=== PATIENT | male | born 1950 | race Caucasian/White ===

== ENCOUNTER → 2020-02-01 | Outpatient (CLI) | payer OTHER ==
--- NOTE | 2020-02-01 13:31 | RAD ---
CHEST PA LATERAL INDICATION: AFIB, PRE OP / Spl. Instructions: / History: . COMPARISON STUDY: 01/24/2020. FINDINGS: Lungs: Normal lung volume. No pulmonary mass or consolidation. The tracheobronchial tree and hilar structures are normal. Pleura: No pleural effusion or pneumothorax. Heart and Mediastinum: The cardiomediastinal silhouette is normal. The great vessels of the thorax are normal. Bones and Soft Tissues: Unchanged thoracolumbar junction compression deformity. IMPRESSION: No acute cardiopulmonary process. Electronically signed by: Quentin Olguin MD (02/01/2020 1:28 PM) [id number]
== END ==
LOC: RAD 10:42
PROVIDERS: ATTEND Family Medicine
DX: I48.20 Chronic atrial fibrillation, unspecified (principal); M43.8X5 Other specified deforming dorsopathies, thoracolumbar region
CPT/HCPCS: 71046

== ENCOUNTER → 2020-04-21 | Outpatient (CLI) | payer MEDICARE ==
--- NOTE | 2020-04-21 15:20 | RAD ---
EXAM: Chest and right ribs, 4 views. HISTORY: Pain. Fall. COMPARISON: 02/01/2020 FINDINGS: A frontal view of the chest and 3 views of the right ribs are obtained. There is a small ri ght pleural effusion and suspected right lower lobe atelectasis. There is also left infrahilar atelec tasis or scarring. There is a stable cardiac silhouette. There is no pneumothorax. There are healing lateral right seventh, posterior lateral right ninth and posterior tenth and eleventh rib fractures. There is a hypoplastic right 12th rib and absent left 12th rib. There is a severe chronic appearing T 12 vertebral body fracture. This is based on suspected 4 nonrib-bearing lumbar segments. IMPRESSION: 1. Small right pleural effusion and suspected right lower lobe atelectasis. There is also left infrah ilar atelectasis or scarring. 2. Suspected healing right seventh, ninth, tenth and eleventh rib fractures. These are seen on a CT p erformed 04/13/2020. Electronically signed by: Nadya Canales MD (04/21/2020 3:10 PM) [id number]
== END ==
LOC: DXRAD 14:32
PROVIDERS: ATTEND Family Medicine
DX: J90 Pleural effusion, not elsewhere classified (principal); R07.81 Pleurodynia; Z90.89 Acquired absence of other organs
CPT/HCPCS: 71101

== ENCOUNTER → 2020-05-09 | Outpatient (CLI) | payer MEDICARE ==
[~2020-05-09] MED LIST: IOHEXOL 350 MG/ML 100 ML VIAL. IV ONE
--- NOTE | 2020-05-09 12:12 | RAD ---
AP and Lateral Views of the Chest 05/09/2020 11:58 AM Indication: Reason: SHORTNESS OF BREATH, HX OF INJURY / Spl. Instructions: / History: Comparison: Chest radiograph February 01, 2020 Findings: There is a small right pleural effusion. There is underlying atelectasis. There is mild int erstitial thickening and mild central vascular congestion. There is borderline cardiomegaly. No acute osseous changes are seen. IMPRESSION: 1. Small right pleural effusion 2. Central vascular congestion and interstitial thickening. Differential considerations include pulmo nary edema versus less likely an atypical or viral infectious process Electronically signed by: Kieran Mohr MD (05/09/2020 12:10 PM) [id number]
[2020-05-09 17:23] LABS: CREATININE 1.1 mg/dL (0.7-1.3); POTASSIUM 4.5 mmol/L (3.5-5.1)
--- NOTE | 2020-05-10 10:45 | RAD ---
EXAM: CT CHEST WITHOUT CONTRAST HISTORY: Shortness of breath, rib fractures on right side COMPARISON: CT chest abdomen pelvis 04/13/2020 TECHNIQUE: Helical CT of the chest performed without contrast. Coronal and sagittal reformats were o btained. One or more of the following individualized dose reduction techniques were utilized for this examinat ion: 1. Automated exposure control 2. Adjustment of the mA and/or kV according to patient size 3. Use of iterative reconstruction technique. FINDINGS: Thyroid gland and thoracic inlet: Visualized portion of thyroid gland is normal. No thoracic inlet ly mphadenopathy. Heart and great vessels: Heart is normal in size without pericardial effusion. Thoracic aorta is norm al in caliber. Mediastinum and heavenly: No mediastinal or hilar lymphadenopathy Lungs and pleura: A right pleural effusion has mildly increased in size. Consolidative opacities in t he right lower lobe are also mildly increased and are likely atelectasis. There is a 5 mm pulmonary n odule along the minor fissure, 3 mm pulmonary nodule in the superior segment left lower lobe, and 4 m m pulmonary nodule in the left upper lobe. Mild atelectasis in the left lower lobe. No pneumothorax. Chest wall and axillae: No axillary lymphadenopathy. Chest wall is unremarkable. Upper abdomen: Changes of cholecystectomy. Bones: There are right sixth through 11th rib fractures: A subacute nondisplaced sixth lateral rib fracture was not conspicuous on prior CT. Unchanged subacute nondisplaced seventh lateral rib fracture. A subacute mildly displaced eighth lateral rib fracture was not conspicuous on prior CT. Unchanged mildly displaced subacute ninth posterior rib fracture. Unchanged subacute fractures of the 10th and 11th ribs, both fractured in 2 locations with mildly dis placed fractures posteriorly and minimally displaced fractures at the costovertebral junction. There are hypoplastic ribs at T12. There is a T12 compression fracture with approximately 75 percent vertebral body height loss and 3 mm retropulsion of the posterior inferior cortex, unchanged. IMPRESSION: 1. Subacute right sixth through 11th rib fractures. The eighth through 11th rib fractures are mildly displaced. The 10th and 11th ribs are fractured in 2 locations each. The sixth rib fracture and eigh th rib fracture were not conspicuous on prior CT. 2. Unchanged severe T12 compression fracture with approximately 75 percent vertebral body height los s and 3 mm retropulsion of cortex with probable mild canal narrowing and mild bilateral foraminal bang rowing. MRI of the thoracic spine could be obtained to further evaluate if clinically indicated. 3. Mildly increased size of small right pleural effusion and right lower lobe atelectasis. No pneumo thorax. Electronically signed by: Amber Vargas MD (05/10/2020 10:42 AM) [id number]
== END ==
LOC: DXRAD 11:44
PROVIDERS: ATTEND Physician Assistant
DX: S22.41XA Multiple fractures of ribs, right side, initial encounter for closed fracture (principal); J90 Pleural effusion, not elsewhere classified; R09.89 Other specified symptoms and signs involving the circulatory and respiratory systems; J92.9 Pleural plaque without asbestos; J98.11 Atelectasis; R91.1 Solitary pulmonary nodule; X58.XXXA Exposure to other specified factors, initial encounter; Y93.89 Activity, other specified; Y92.89 Other specified places as the place of occurrence of the external cause; Y99.8 Other external cause status
CPT/HCPCS: 36415; 71046; 71260; 80048; Q9967

== ENCOUNTER → 2020-05-18 | Outpatient (CLI) | payer MEDICARE ==
--- NOTE | 2020-05-18 14:15 | RAD ---
EXAM: XR CHEST 2V INDICATION: Reason: SHORTNESS OF BREATH / Spl. Instructions: / History: . TECHNIQUE: Single view COMPARISON: 05/09/2020, chest CT with IV contrast of 05/09/2020 FINDINGS: The heart size is normal. The great vessels appear unremarkable. There is no hilar or mediastinal mass. Lungs again show mild interstitial thickening similar to prior and central pulmonary vascular congest ion No pneumothorax. Small right pleural effusion persists. Chronic anterior wedge compression fracture at L1 is redemonstrated. Right rib fractures evident on C T are not as well shown by x-ray. IMPRESSION: Persistent central pulmonary vascular congestion with interstitial thickening and a small right pleur al effusion. Previously evident right rib fractures are not as well shown by x-ray. No pneumothorax. Electronically signed by: Temi Weiss MD (05/18/2020 2:12 PM) [id number]
== END ==
LOC: RAD 13:24
PROVIDERS: ATTEND Internal Medicine Pulmonary Disease
DX: S27.321A Contusion of lung, unilateral, initial encounter (principal); S22.41XA Multiple fractures of ribs, right side, initial encounter for closed fracture; X58.XXXA Exposure to other specified factors, initial encounter; Y93.89 Activity, other specified; Y92.89 Other specified places as the place of occurrence of the external cause; Y99.8 Other external cause status
CPT/HCPCS: 71046

== ENCOUNTER → 2020-06-05 | Outpatient (CLI) | payer MEDICARE ==
--- NOTE | 2020-06-05 11:11 | RAD ---
Exam performed: 2 views of the chest. Indication: Reason: CHECK FOR FLUID PRIOR TO THORACENTESIS, HX OF FX RIBS / Spl. Instructions: / His tory: Date of Service: 06/05/2020 10:58 AM. Comparison : Two-view chest from 05/18/2020 Findings: PA and lateral radiographs of the chest reveal a normal cardiomediastinal contour. The lungs are all r. Previously seen small right pleural effusion is significantly improved with barely perceptible tra ce right pleural effusion. Right rib fractures. There is no pneumothorax. The visualized osseous stru ctures are unremarkable. Impression: Significant interval improvement in the right pleural effusion with barely perceptible right pleural effusion. Electronically signed by: Joyce Gutiérrez MD (06/05/2020 11:09 AM) [id number]
== END ==
LOC: RAD 10:47
PROVIDERS: ATTEND Internal Medicine Pulmonary Disease
DX: S22.41XA Multiple fractures of ribs, right side, initial encounter for closed fracture (principal); J90 Pleural effusion, not elsewhere classified; X58.XXXA Exposure to other specified factors, initial encounter; Y93.89 Activity, other specified; Y92.89 Other specified places as the place of occurrence of the external cause; Y99.8 Other external cause status
CPT/HCPCS: 71046